=== PATIENT | female | born 1965 | race Caucasian/White ===

== ENCOUNTER → 2016-12-02 | Outpatient (CLI) | payer BC ==
[~2016-12-02] MED LIST: LISI-461 PO; MULT-506 PO; NAPR1TAB9 PO
--- NOTE | 2016-12-03 13:56 | MAMMOGRAPHY REPORT ---
BILATERAL DIGITAL SCREENING MAMMOGRAM TOMOSYNTHESIS WITH CAD: 12/02/2016 CLINICAL HISTORY: Routine screening. The patient reported to the technologist a left breast lump whi ch she has had since her last exam. TECHNIQUE: Breast tomosynthesis in addition to standard 2D mammography was performed. Current study was also evaluated with a Computer Aided Detection (CAD) system. COMPARISON: Comparison is made to exams dated: 12/05/2012 mammogram, 04/04/2010 ultrasound, 04/04/2010 mammogram - [facility], and 05/24/2008. BREAST COMPOSITION: There are scattered areas of fibroglandular density in both breasts. FINDINGS: No suspicious masses, calcifications, or areas of architectural distortion are noted in ei ther breast. A triangle camacho the site of the palpable lump in the left 12:00 breast pointed out by the patient. At this site there are at least 3 adjacent circumscribed masses, which are decreased co mpared to the prior 2012 and 2010 exam, and were shown to represent cysts on the prior 2010 exam. Ot her fluctuating scattered round/oval benign appearing circumscribed masses are again noted bilaterall y which likely represent cysts. IMPRESSION: ACR BI-RADS CATEGORY 2: BENIGN 1. There is no mammographic evidence of malignancy. A 1 year screening mammogram is recommended. 2. The patient reported to the technologist a left breast lump. Circumscribed benign-appearing arely s are seen in this region mammographically, with corresponding benign cysts seen in this region on a prior 2010 ultrasound exam. Generally if the patient reports a palpable lump, ultrasound is also per formed in addition to mammography. If the lump is new or increasing, then recommend additional imagi ng evaluation with ultrasound. The patient will receive written notification of the results. Approximately 10% of breast cancers are not detected with mammography. A negative mammographic report should not delay biopsy if a clinically suggestive mass is present. Kari Templeton M.D. ah/:12/02/2016 16:04:50 Audiometrist: Sandy MOTT)(Tara), [facility] letter sent: Normal 1/2 BI-RADS Code: ACR BI-RADS Category 2: Benign
== END | disposition home or self-care (01) ==
LOC: C.MAMM 07:36
PROVIDERS: ATTEND Family Medicine
DX: Z12.31 Encounter for screening mammogram for malignant neoplasm of breast (principal)